=== PATIENT | male | born 1965 | race Caucasian/White ===

== ENCOUNTER → 2021-03-18 09:08 | Outpatient (BNVA) | payer OTHER, SELFPAY | PROVIDERS: Visit Provider Internal Medicine | DX: L40.9 Psoriasis, unspecified (principal); M25.50 Pain in unspecified joint; Z11.59 Encounter for screening for other viral diseases; Z11.1 Encounter for screening for respiratory tuberculosis | CPT/HCPCS: 99203; 99204 ==

== ENCOUNTER → 2021-07-07 08:30 | Outpatient (BNVA) | payer OTHER, SELFPAY | PROVIDERS: Visit Provider Specialist | DX: M19.90 Unspecified osteoarthritis, unspecified site (principal); R52 Pain, unspecified; M67.441 Ganglion, right hand | CPT/HCPCS: 73140 ==

== ENCOUNTER → 2021-08-25 18:44 | Outpatient (BNVA) | payer OTHER, SELFPAY | PROVIDERS: Visit Provider Registered Nurse Neonatal Intensive Care | DX: M79.642 Pain in left hand (principal) | CPT/HCPCS: 73130 ==

== ENCOUNTER 2021-12-01 07:37 | Outpatient (RCR) | payer OTHER, SELFPAY | END 2021-12-20 23:59 | disposition home or self-care (01) | LOC: SPT 07:37 | PROVIDERS: PCP Family Medicine; Referring Provider Family Medicine; Visit Provider Family Medicine | DX: M54.12 Radiculopathy, cervical region (principal) | CPT/HCPCS: 97110; 97140; 97162 ==

== ENCOUNTER 2021-12-21 06:00 | Outpatient (RCR) | payer OTHER, SELFPAY | END 2022-01-20 23:59 | disposition home or self-care (01) | LOC: SPT 06:00 | PROVIDERS: PCP Family Medicine; Referring Provider Family Medicine; Visit Provider Family Medicine | DX: M54.12 Radiculopathy, cervical region (principal) | CPT/HCPCS: 97110; 97140 ==

== ENCOUNTER 2022-01-21 06:00 | Outpatient (RCR) | payer OTHER, SELFPAY | END 2022-02-19 23:59 | disposition home or self-care (01) | LOC: SPT 06:00 | PROVIDERS: PCP Family Medicine; Referring Provider Family Medicine; Visit Provider Family Medicine | DX: M54.12 Radiculopathy, cervical region (principal) | CPT/HCPCS: 97110; 97140 ==

== ENCOUNTER 2022-02-20 06:00 | Outpatient (RCR) | payer OTHER, SELFPAY | END 2022-03-16 08:52 | disposition home or self-care (01) | LOC: SPT 06:00 | PROVIDERS: PCP Family Medicine; Referring Provider Family Medicine; Visit Provider Family Medicine | DX: M54.12 Radiculopathy, cervical region (principal) | CPT/HCPCS: 97110; 97140 ==

== ENCOUNTER → 2022-02-24 15:24 | Outpatient (BNVA) | payer OTHER, SELFPAY | PROVIDERS: PCP Family Medicine; Visit Provider Internal Medicine | DX: L40.9 Psoriasis, unspecified (principal); M25.50 Pain in unspecified joint; Z79.899 Other long term (current) drug therapy; Z11.59 Encounter for screening for other viral diseases; Z11.1 Encounter for screening for respiratory tuberculosis; Z79.1 Long term (current) use of non-steroidal anti-inflammatories (NSAID) | CPT/HCPCS: 36415; 80053; 85025; 85651; 86140; 86480; 86704; 86803; 87340; 99214 ==

== ENCOUNTER → 2022-05-30 14:08 | Outpatient (BNVA) | payer OTHER, SELFPAY | PROVIDERS: PCP Family Medicine; Visit Provider Internal Medicine | DX: M25.50 Pain in unspecified joint (principal); L40.9 Psoriasis, unspecified | CPT/HCPCS: 99213; 99214 ==

== ENCOUNTER 2022-07-12 06:00 | Outpatient (RCR) | payer OTHER, SELFPAY | END 2022-07-22 23:59 | disposition home or self-care (01) | LOC: SPT 06:00 | PROVIDERS: PCP Family Medicine; Visit Provider Family Medicine | DX: M25.50 Pain in unspecified joint (principal); M54.2 Cervicalgia | CPT/HCPCS: 97012; 97110; 97140; 97161; G0283 ==

== ENCOUNTER 2022-07-20 07:56 | Outpatient (CLI) | payer OTHER, SELFPAY ==
--- NOTE | 2022-07-20 08:04 | MR_ITS ---
WS: [id number] MRI CERVICAL SPINE NONCONTRAST TECHNIQUE: Sagittal T1, T2 and STIR imaging. Axial T2, gradient, and fiesta imaging. CLINICAL INFORMATION: NECK PAIN COMPARISON: None. FINDINGS: Straightening of the normal cervical lordosis. Degenerative disc disease worse at C4-C5 with endplate degenerative edema. Cord signal is normal. No high-grade central canal stenosis. C2-C3: Normal C3-C4: Mild facet arthropathy. Mild LEFT and no significant RIGHT foraminal narrowing. Spinal canal i s patent. C4-C5: Disc desiccation. Mild central canal stenosis with slight indentation on cervical cord. Modera te LEFT greater than RIGHT bony foraminal narrowing. Mild facet arthropathy with uncovertebral joint hypertrophy. C5-C6: Disc osteophyte complex endplate ridging. Mild central canal stenosis. Moderate LEFT and mild RIGHT bony foraminal narrowing. C6-C7: Disc osteophyte complex with endplate ridging. Moderate RIGHT bony foraminal narrowing. Spinal canal is patent. LEFT foramen is patent. C7-T1: Mild LEFT and no significant RIGHT foraminal narrowing. Spinal canal is patent. Visualized brain stem structures: Normal. Prevertebral soft tissues: Normal. Tiny central protrusions T2-T3 and T3-T4. MR/MR cervical spin wo con* [id number] IMPRESSION: 1. Straightening of the normal cervical lordosis. 2. Degenerative disc disease worse at C4-C5 and C5-C6 with mild central canal stenosis worse at C4-C5 with slight indentation on cervical cord. 3. Multilevel mild to moderate bony foraminal narrowing worse at LEFT C4-C5, L EFT C5-C6, and RIGHT C6-C7.
== END 2022-07-20 07:57 | disposition home or self-care (01) ==
LOC: RAD 07:57
PROVIDERS: PCP Family Medicine; Visit Provider Family Medicine
DX: M50.321 Other cervical disc degeneration at C4-C5 level (principal); M47.12 Other spondylosis with myelopathy, cervical region; M54.81 Occipital neuralgia; G24.3 Spasmodic torticollis
CPT/HCPCS: 64405; 72141; 99204; 99205; J1030

== ENCOUNTER 2022-07-23 06:00 | Outpatient (RCR) | payer OTHER, SELFPAY | END 2022-08-22 23:59 | disposition home or self-care (01) | LOC: SPT 06:00 | PROVIDERS: PCP Family Medicine; Visit Provider Family Medicine | DX: M25.50 Pain in unspecified joint (principal) | CPT/HCPCS: 97012; 97110; 97140; G0283 ==

== ENCOUNTER → 2022-08-11 14:35 | Outpatient (BNVA) | payer OTHER, SELFPAY | PROVIDERS: PCP Family Medicine; Visit Provider Specialist | DX: G24.3 Spasmodic torticollis (principal); M47.12 Other spondylosis with myelopathy, cervical region | CPT/HCPCS: 64616; J0585 ==

== ENCOUNTER 2022-08-23 06:00 | Outpatient (RCR) | payer OTHER, SELFPAY | END 2022-09-21 23:59 | disposition home or self-care (01) | LOC: SPT 06:00 | PROVIDERS: PCP Family Medicine; Visit Provider Family Medicine | DX: M25.50 Pain in unspecified joint (principal) | CPT/HCPCS: 97140; G0283 ==

== ENCOUNTER 2022-09-22 06:00 | Outpatient (RCR) | payer OTHER, SELFPAY | END 2022-10-22 23:59 | disposition home or self-care (01) | LOC: SPT 06:00 | PROVIDERS: PCP Family Medicine; Visit Provider Family Medicine | DX: M25.50 Pain in unspecified joint (principal) | CPT/HCPCS: 97110; 97140 ==

== ENCOUNTER 2022-10-23 06:00 | Outpatient (RCR) | payer OTHER, SELFPAY | END 2022-10-27 23:59 | disposition home or self-care (01) | LOC: SPT 06:00 | PROVIDERS: PCP Family Medicine; Visit Provider Family Medicine | DX: M25.50 Pain in unspecified joint (principal) | CPT/HCPCS: 97110; 97140 ==

== ENCOUNTER → 2022-11-03 15:36 | Outpatient (BNVA) | payer OTHER, SELFPAY | PROVIDERS: PCP Family Medicine; Visit Provider Specialist | DX: G24.3 Spasmodic torticollis (principal); M47.12 Other spondylosis with myelopathy, cervical region | CPT/HCPCS: 64616; J0585 ==

== ENCOUNTER → 2022-11-15 14:20 | Outpatient (BNVA) | payer OTHER, SELFPAY | PROVIDERS: PCP Family Medicine; Visit Provider Internal Medicine | DX: L40.9 Psoriasis, unspecified (principal); M25.50 Pain in unspecified joint | CPT/HCPCS: 99214 ==

== ENCOUNTER 2023-07-10 11:17 | Emergency (ER) | payer OTHER, SELFPAY ==
[2023-07-10 11:19] VITALS: BP 142/83; PULSE 73; RESP 17; TEMP 35.9; O2SAT 98; BMI 21.5
--- NOTE | 2023-07-10 11:27 | W.ED.SKABFB ---
HPI - Skin/Abscess/Foreign Bdy General: Chief complaint: Skin/Abscess/Foreign Body Stated complaint: hives Time Seen by Provider: 07/10/23 11:20 Source: patient Mode of arrival: ambulatory Limitations: no limitations History of Present Illness: 57-year-old male states that he has had a rash to his face neck over the last 2 days. Patient states that he has been exposed to poison ruba rash started behind his ear he believes is poison ruba states is very pruritic in nature he denies any shortness of breath denies any pain anywhere. Associated symptoms: Deny chills, fever(s), nausea or vomiting Review of Systems Const: Denies: fever(s), chills, body aches or change in appetite Eyes: Denies: blurry vision or eye discomfort ENMT: Denies: throat pain or dental pain Card: Denies: chest pain Resp: Denies: dyspnea GI: Denies: abdominal pain, nausea, vomiting or diarrhea : Denies: dysuria Musc: Denies: neck pain or back pain Skin/Breast: Reports: rash Neuro: Denies: headache(s) Psych: Denies: depression PFSH ED PFSH: Family History Family/Other Hyperlipidemia Hypertension Cancer Rheumatic arteritis Grandmother Rheumatic arteritis Mother Rheumatic arteritis Denies family history of Diabetes Lupus CAD (coronary artery disease) Stroke Social History Smoking and tobacco status: never smoked Second hand smoke exposure: No Alcohol intake: current Alcohol intake frequency: holidays/special occasions only Physical Exam Const: COMMON NORMALS: no acute distress, patient oriented x3 and healthy appearing HENMT: COMMON NORMALS: normocephalic and atraumatic HEAD & SCALP: normocephalic and atraumatic Neck/C-Spine: COMMON NORMALS: full ROM and supple Chest: COMMONS NORMALS: normal inspection of the chest and normal palpation of entire chest wall Resp: COMMON NORMALS: normal respiratory effort, No retractions, No use of accessory muscles and clear to auscultation bilaterally AUSCULTATION: clear to auscultation bilaterally Cardio: COMMON NORMALS: regular rate, regular rhythm and No murmurs present (Cardio) RATE: regular rate RHYTHM: regular rhythm GI: INSPECTION: Yes normal to inspection Extremity: COMMON NORMALS: normal to inspection and full ROM Neuro: COMMON NORMALS: patient oriented x3, moves all extremities and no focal motor deficits Psych: COMMON NORMALS: mental status grossly normal, Normal thought process present and cooperative THOUGHT PROCESS: Normal thought process present Skin: COMMON NORMALS: no wounds NARRATIVE SKIN EXAM: Maculopapular rash to face and neck Course Vital Signs: Vital signs: Vital Signs Temperature 96.6 F L 07/10/23 11:19 Pulse Rate 73 07/10/23 11:19 Respiratory Rate 17 07/10/23 11:19 Blood Pressure 142/83 07/10/23 11:19 Pulse Oximetry 98 07/10/23 11:19 Oxygen Delivery Me thod Room Air 07/10/23 11:19 MDM - Skin/Abscess/Foreign Bdy Medicial Decision Making Patient presents with likely poison ruba did give him steroid shots here we will place him on a Medrol Dosepak he is stable for discharge return if worsening. Medical Records I reviewed the patient's medical records. No radiology studies performed this visit Discharge Plan Discharge Patient Disposition: Home Clinical Impression: Contact dermatitis Condition: Stable Prescriptions: New Medrol (Kevin) 4 mg tablets,dose pack 4 mg PO DAILY Qty: 21 0RF No Action cyclobenzaprine 10 mg tablet 10 mg PO TID clobetasol 0.05 % cream 1 applic topical BID 14 Days Qty: 30 0RF diclofenac sodium 1 % gel 2 g topical QID Qty: 100 2RF Rx Instructions: apply to single elbow, wrist or hand; for hand includes palm/fingers/back of hand Enbrel SureClick 50 mg/mL (1 mL) pen injector 50 mg SUBCUT .qweek Qty: 4 5RF Discharge Orders: Discharge ED (Routine); Ordered 07/10/23 Ordered By: Jarrod Green Referrals: Barbara Lynne MD [Primary Care Provider] - 1-3 days Discharge Diet: Advance as tolerated Discharge Activity: Resume usual activity Patient Instructions: Contact Dermatitis (ED) Coding Level of Care Code ED 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
[2023-07-10] MEDS: diphenhydrAMINE 50 mg/mL SDV 1mL IM (11:39)
[2023-07-10] MEDS: dexamethasone 10 mg/mL INJ IM (11:41)
[2023-07-10] MEDS: triamcinolone 40 mg/mL SDV 80 MG IM (11:44)
[2023-07-10 12:19] VITALS: PULSE 52; O2SAT 98
== END 2023-07-10 12:20 | disposition home or self-care (01) ==
PROVIDERS: Emergency Provider Emergency Medicine; PCP Family Medicine
DX: L25.9 Unspecified contact dermatitis, unspecified cause (principal)
CPT/HCPCS: 96372; 99284; J1100; J1200; J3301

== ENCOUNTER 2023-07-23 13:36 | Emergency (ER) | payer OTHER, SELFPAY ==
[2023-07-23 14:03] VITALS: BP 129/73; PULSE 82; RESP 17; TEMP 36.6; O2SAT 97; BMI 21.5
--- NOTE | 2023-07-23 14:44 | W.ED.ALLEREA ---
HPI - Allergic Reaction General: Chief complaint: Allergic Reaction Stated complaint: allergic reaction Time Seen by Provider: 07/23/23 14:31 Source: patient Mode of arrival: ambulatory Limitations: no limitations History of Present Illness: HPI narrative: 57-year-old male states he had a rash to his hands and arms its been spreading now to his chest he states its very pruritic in nature. He is seen here 2 weeks ago is on steroids states he had no improvement he denies any fevers denies any worsening improving factors. Associated symptoms: Deny abdominal pain, nausea or vomiting Review of Systems Const: Denies: fever(s) or chills ENMT: Denies: throat pain or dental pain Card: Denies: chest pain Resp: Denies: dyspnea GI: Denies: abdominal pain, nausea, vomiting or diarrhea Musc: Denies: neck pain or back pain Skin/Breast: Reports: rash Neuro: Denies: headache(s) PFSH ED PFSH: Family History Family/Other Hyperlipidemia Hypertension Cancer Rheumatic arteritis Grandmother Rheumatic arteritis Mother Rheumatic arteritis Denies family history of Diabetes Lupus CAD (coronary artery disease) Stroke Social History Smoking and tobacco status: never smoked Second hand smoke exposure: No Alcohol intake: current Alcohol intake frequency: holidays/special occasions only Physical Exam Const: COMMON NORMALS: no acute distress and patient oriented x3 HENMT: COMMON NORMALS: normocephalic and atraumatic HEAD & SCALP: normocephalic and atraumatic Eye: COMMON NORMALS: conjunctivae normal CONJUNCTIVA: Yes conjunctivae normal Neck/C-Spine: COMMON NORMALS: supple Chest: OTHER: rash to chest Resp: COMMON NORMALS: normal respiratory effort GI: INSPECTION: Yes normal to inspection Extremity: COMMON NORMALS: full ROM Neuro: COMMON NORMALS: patient oriented x3 Psych: COMMON NORMALS: mental status grossly normal Skin: NARRATIVE SKIN EXAM: Rash noted to chest and arms likely scabies Course Vital Signs: Vital signs: Vital Signs Temperature 97.9 F 07/23/23 14:03 Pulse Rate 82 07/23/23 14:03 Respiratory Rate 17 07/23/23 14:03 Blood Pressure 129/73 07/23/23 14:03 Pulse Oximetry 97 07/23/23 14:03 Oxygen Delivery Me thod Room Air 07/23/23 14:03 MDM - Allergic Reaction Medical Decision Making Patient presents here with a rash to his arms and chest with appearance of scabies we will treat with Elimite he is to follow-up with dermatology on Monday as scheduled. e Medical Records I reviewed the patient's medical records. No radiology studies performed this visit Discharge Plan Discharge Patient Disposition: Home Clinical Impression: Rash Condition: Stable Prescriptions: New permethrin 5 % cream 1 applic topical Q14D Qty: 60 0RF Rx Instructions: apply second treatment 14 days after first treatment if live lice remain No Action cyclobenzaprine 10 mg tablet 10 mg PO TID clobetasol 0.05 % cream 1 applic topical BID 14 Days Qty: 30 0RF diclofenac sodium 1 % gel 2 g topical QID Qty: 100 2RF Rx Instructions: apply to single elbow, wrist or hand; for hand includes palm/fingers/back of hand Enbrel SureClick 50 mg/mL (1 mL) pen injector 50 mg SUBCUT .qweek Qty: 4 5RF Medrol (Kevin) 4 mg tablets,dose pack 4 mg PO DAILY Qty: 21 0RF Discharge Orders: Discharge ED (Routine); Ordered 07/23/23 Ordered By: Jarrod Green Referrals: Barbara Lynne MD [Primary Care Provider] - Discharge Diet: Advance as tolerated Discharge Activity: Resume usual activity Patient Instructions: Scabies (ED) Coding Level of Care Code ED 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
== END 2023-07-23 15:00 | disposition home or self-care (01) ==
PROVIDERS: Emergency Provider Emergency Medicine; PCP Family Medicine
DX: R21 Rash and other nonspecific skin eruption (principal)
CPT/HCPCS: 99283